=== PATIENT | female | born 1985 | race African-American/Black ===

== ENCOUNTER 2017-06-15 12:00 | Emergency (ER) | payer SELFPAY ==
[2017-06-15 12:18] VITALS: BP 121/79; PULSE 70; RESP 16; TEMP 97.6; O2SAT 100
[2017-06-15] MEDS ORDERED: SILVER SULFADIAZINE 1% CR 50 GM JAR TOPICAL ONE (13:45)
[2017-06-15] MEDS ORDERED: TETANUS/DIPHTHERIA TOXOID ADULT 0.5 ML VIAL IM ONE (13:45)
--- NOTE | 2017-06-15 13:59 | PD ---
HPI Chief Complaint: Burn Time Seen by Provider: 13:36 Travel History International Travel<30 days: No Contact w/Intl Traveler<30days: No Traveled to known affect area: No History of Present Illness HPI 31-year-old right-hand dominant female presents to the ED for evaluation of burn of the left wrist. Sustained this morning while she was working with "cooking oil." States that she knocked the pot over on herself. On presentation she denies numbness, tingling, weakness, limitations to range of motion of the extremity. Is unsure of the date of her last tetanus immunization. She washed the wound with cold water at home. [facility] Social History Tobacco Use: No Allergies-Medications (Allergen,Severity, Reaction): Coded Allergies: No Known Allergies (Unverified , 06/15/17) Reported Meds & Prescriptions Reported Meds & Active Scripts Active Ibuprofen 600 Mg Tab 600 Mg PO Q8HR PRN Silvadene Topical (Silver Sulfadiazine) 1 % Cream 1 Applic TOPICAL DIRECTED 14 Days Review of Systems Except as stated in HPI: all other systems reviewed are Neg Physical Exam Narrative GENERAL: Well-nourished, well-developed AA female in NAD. SKIN: Focused skin assessment warm/dry. HEAD: Normocephalic. EYES: No scleral icterus. No injection or drainage. NECK: Supple, trachea midline. No JVD or lymphadenopathy. CARDIOVASCULAR: Regular rate and rhythm without murmurs, gallops, or rubs. RESPIRATORY: Breath sounds equal bilaterally. No accessory muscle use. GASTROINTESTINAL: Abdomen soft, non-tender, nondistended. MUSCULOSKELETAL: No cyanosis, or edema. FOCUSED LEFT UPPER EXTREMITY EXAM: 2+ radial pulse. There is a partial thickness blistering burn of the posterior aspect of the wrist. Measures approximately 6 cm x 4 cm. There are several smaller independent blisters of the forearm. The largest blister is burst with pink skin revealed underneath. Patient retains full, active, painless ROM of the wrist. Sensation intact to light touch distally. Cap refill less than 2 seconds. BACK: Nontender without obvious deformity. No CVA tenderness. Data Data Last Documented VS Vital Signs Date Time Temp Pulse Resp B/P (MAP) Pulse Ox O2 Delivery O2 Flow Rate FiO2 06/15/17 12:18 97.6 70 16 121/79 (93) 100 Orders Orders Tetanus/Diphtheria Tox Adult (Tetanus/Di (06/15/17 13:45) Silver Sulfadia 1% Crm (50 Gm) (Silvaden (06/15/17 13:45) Ed Discharge Order (06/15/17 14:00) [facility] Medical Decision Making Medical Screen Exam Complete: Yes Emergency Medical Condition: Yes Differential Diagnosis Partial-thickness burn versus third-degree burn versus second-degree burn versus need for tetanus immunization. Narrative Course 31-year-old right-hand dominant female presents to the ED for evaluation of left wrist burn, sustained with cooking oil this morning. Patient cleansed the wound with water before arrival. On exam there is a partial-thickness burn of the posterior aspect of the left wrist measuring approximately 4 x 6 cm. The large blister His bursa nares pink skin underneath. There are also several smaller independent blisters of the arm. The extremity is otherwise intact. The wound was cleansed and Silvadene and nonstick dressing was applied. Patient 's prescribed Silvadene topical twice a day, 600 mg ibuprofen 3 times a day when necessary for pain. She is instructed to keep the wound clean, dry and covered, return for worsening symptoms, otherwise follow with the primary care. She is stable and discharged home. Diagnosis Primary Impression: Partial thickness burn of multiple sites of left wrist Qualified Codes: T23.292A - Burn of second degree of multiple sites of left wrist and hand, initial encounter Referrals: Primary Care Physician Patient Instructions: General Instructions, Second Degree Burn (ED) Departure Forms: Tests/Procedures, Work Release Enter return to work date: Jun 16, 2017 Special Instructions: No submerging right hand/ arm. No heavy lifting, overuse of the arm for 1 week. Additional Instructions: Keep wound clean, dry and covered. Wash the wound daily and apply a thin coating of Silvadene cream x 2 weeks. Monitor for signs of infection such as discharge, redness, increased pain, fevers. Return to the ED for worsening symptoms or any urgent or emergent medical condition. Med/Other Pt SpecificInfo: Prescription(s) given Scripts Ibuprofen (Ibuprofen) 600 Mg Tab 600 MG PO Q8HR Y for PAIN, #15 TAB 0 Refills Prov: Dakota Le MD 06/15/17 Silver Sulfadiazine Topical (Silvadene Topical) 1 % Cream 1 APPLIC TOPICAL DIRECTED for Wound Management for 14 Days, #50 GM 0 Refills Prov: Dakota Le MD 06/15/17 Disposition: 01 DISCHARGE HOME Condition: Stable Leanne Louise Jun 15, 2017 13:59
[2017-06-15] MEDS ORDERED: IBUP-232 PO (14:00)
[2017-06-15] MEDS ORDERED: SILV1CRE20 TOPICAL (14:00)
== END 2017-06-15 14:12 | disposition home or self-care (01) ==
LOC: NED 12:00 → NEPK 14:12
DX: T23.292A Burn of second degree of multiple sites of left wrist and hand, initial encounter (principal); X10.2XXA Contact with fats and cooking oils, initial encounter; Z23 Encounter for immunization
CPT/HCPCS: 16020; 90471; 90714